=== PATIENT | male | born 1980 | race Caucasian/White ===

== ENCOUNTER → 2018-08-17 15:54 | Outpatient (CLI) | payer OTHER, SELFPAY ==
--- NOTE | 2018-08-17 | DI.MRI.S_ITS ---
PROCEDURE: MR ANKLE RT WO CON INDICATIONS: INSTABILITY RIGHT ANKLE TECHNIQUE: Noncontrast sagittal T1 spin echo and T2 fast spin echo with fat saturation, axial proton density fast spin echo and T2 fast spin echo with fat saturation, coronal T1 spin echo and T2 fast spin echo with fat saturation through the ankle/hindfoot. COMPARISON: None. FINDINGS: Image quality: Excellent. Bones and joints: No bone marrow contusions or fractures. No hindfoot coalitions. No osteochondral injuries of the talar dome. Small amount of joint effusion within tibiotalar joint and subtalar joint is seen, no gross loose body. Medial structures: The posterior tibialis, flexor digitorum longus, and flexor hallucis longus tendons are intact. The posterior tibial neurovascular bundle appears normal within the tarsal tunnel, without extrinsic mass effect. The deep layer (anterior and posterior tibiotalar ligaments) and superficial layer (tibionavicular, tibiospring, and tibiocalcaneal ligaments) of the deltoid ligament appear normal. The spring ligament components (superomedial calcaneonavicular, medioplantar oblique calcaneonavicular, and inferoplantar longitudinal ligaments) are intact. Lateral structures: The anterior talofibular, calcaneofibular, and posterior talofibular ligaments appear intact. More superiorly, the anterior and posterior tibiofibular ligaments appear intact, as is the intermalleolar ligament. The tibiofibular syndesmosis is normal in width at 2 mm or less. The peroneus longus and brevis tendons demonstrate normal location and morphology. Adjacent bony peroneal tubercle and retrotrochlear prominence are normal in size. The sinus tarsi demonstrates normal fatty signal, without edema, fibrosis, or cyst formation. Visualized sinus tarsi components (cervical ligament, interosseous talocalcaneal ligament, roots of the inferior extensor retinaculum) appear normal. The calcaneonavicular and calcaneocuboid components of the bifurcate ligament appear intact. The dorsal calcaneocuboid ligament appears intact. Anterior structures: The tibialis anterior, extensor hallucis longus, and extensor digitorum longus tendons appear intact. The dorsal talonavicular ligament appears intact. Posterior and plantar structures: Achilles tendon is intact. Medial and lateral bands of the plantar fascia are of normal thickness. No abductor digiti quinti muscle atrophy to suggest [place] neuropathy. IMPRESSION: No MR evidence of internal derangement. No marrow signal abnormality. Small amount of joint effusion. Dictated by: John Riley M.D. on 08/17/2018 at 20:34 Approved by: John Riley M.D. on 08/17/2018 at 20:38
== END ==
PROVIDERS: Visit Provider Podiatrist
DX: M25.371 Other instability, right ankle (principal); M25.471 Effusion, right ankle
CPT/HCPCS: 73721

== ENCOUNTER → 2020-03-16 12:54 | Outpatient (CLI) | payer OTHER, SELFPAY ==
--- NOTE | 2020-03-16 | DI.MRI.S_ITS ---
PROCEDURE: MR ANKLE RT W CON INDICATIONS: PAIN IN RIGHT FOOT AND ANKLE TECHNIQUE: After the administration of 5 mL of dilute intra-articular Gadolinium contrast into the tibiotalar joint, sagittal T1 spin echo with and without fat saturation, axial T1 fast spin echo with fat saturation and T2 fast spin echo with fat saturation, coronal T1 spin echo and T2 fast spin echo with fat saturation through the ankle. COMPARISON: [facility] Outside Film, CR, XR ANKLE 3+ VIEWS RIGHT, 11/23/2019, 12:52. FINDINGS: Image quality: There is mild inhomogeneous fat saturation. Bones and joints: No bone marrow contusions or fractures. No hindfoot coalitions. There are cystic changes within the posterior plantar aspect of the lateral malleolus likely representing reactive changes. No osteochondral injuries of the talar dome. The articular cartilage demonstrates no focal defects. No intra-articular bodies. The tibiotalar joint capsule is of normal in overall thickness. Medial structures: The posterior tibialis, flexor digitorum longus, and flexor hallucis longus tendons are intact. The posterior tibial neurovascular bundle appears normal within the tarsal tunnel, without extrinsic mass effect. The deltoid ligament appears intact. There is edema along the plantar calcaneonavicular component of the spring ligament which is attenuated in appearance consistent with a moderate sprain. Lateral structures: The anterior talofibular ligament is mildly attenuated compatible with a mild sprain. The calcaneofibular and posterior talofibular ligaments appear intact. More superiorly, the anterior and posterior tibiofibular ligaments appear intact, as is the intermalleolar ligament. The tibiofibular syndesmosis is normal in width at 2 mm or less. The peroneus longus and brevis tendons demonstrate normal location and morphology. Adjacent bony peroneal tubercle and retrotrochlear prominence are normal in size. The sinus tarsi demonstrates normal fatty signal, without edema, fibrosis, or cyst formation. The calcaneonavicular and calcaneocuboid components of the bifurcate ligament appear intact. The dorsal calcaneocuboid ligament appears intact. Anterior structures: The tibialis anterior, extensor hallucis longus, and extensor digitorum longus tendons appear intact. The dorsal talonavicular ligament appears intact. Posterior and plantar structures: Achilles tendon is intact. Medial and lateral bands of the plantar fascia are of normal thickness. No abductor digiti quinti muscle atrophy to suggest [place] neuropathy. IMPRESSION: 1. No discrete joint body or osteochondral lesions. 2. Moderate sprain of the plantar calcaneonavicular component of the spring ligament. 3. Mild sprain of the anterior talofibular ligament. Dictated by: Tae Forrester M.D. on 03/16/2020 at 16:10 Approved by: Tae Forrester M.D. on 03/16/2020 at 16:29
--- NOTE | 2020-03-16 | DI.RAD.S_ITS ---
PROCEDURE: FL ARTHROGRAM ANKLE RT INDICATIONS: PAIN IN RIGHT ANKLE AND FOOT TECHNIQUE: After informed consent had been obtained, the ankle was examined fluoroscopically in the lateral projection, and a site for needle placement chosen for entry into the tibiotalar joint from an anterior approach. Care was taken to locate the dorsalis pedis artery beforehand. The skin was prepped and draped in a sterile fashion, and 1% Xylocaine infiltrated from skin down to joint capsule. A hypodermic needle was inserted into the joint, and a small amount of iodinated contrast media injected to confirm intra-articular placement of the needle tip. This was followed by approximately 5 mL dilute solution of a gadolinium containing MR contrast agent. The needle was removed and a dressing was applied. The patient was given postprocedural instructions and sent to the MR suite for MR imaging. The attending radiologist was present during invasive portions of the procedure, and performed all intra-articular injections. FINDINGS: A single fluoroscopic spot image demonstrates intra-articular location of injected iodinated contrast. IMPRESSION: Successful fluoroscopically guided administration of dilute Gadolinium solution into the tibiotalar joint for MR arthrogram. Dictated by: Tim Plummer M.D. on 03/16/2020 at 15:55 Approved by: Tim Plummer M.D. on 03/16/2020 at 15:56
== END ==
PROVIDERS: PCP General Practice; Referring Provider Orthopaedic Surgery; Visit Provider Orthopaedic Surgery
DX: M25.571 Pain in right ankle and joints of right foot (principal); S93.491A Sprain of other ligament of right ankle, initial encounter
CPT/HCPCS: 27648; 73615; 73722